=== PATIENT | female | born 1945 | race Caucasian/White ===

== ENCOUNTER 2017-04-26 12:56 | Emergency (ER) | payer MEDICARE, SELFPAY ==
[2017-04-26 13:11] VITALS: BMI 54.8
--- NOTE | 2017-04-26 13:15 | PC.NURSE ---
SIL AMATO CONTACTED AT THIS TIME
--- NOTE | 2017-04-26 13:15 | [facility].EDCPR ---
ED Disposition Clinical Impression: Cardiac arrest, D.O.A. ( on arrival), Sudden cardiac Disposition: Condition on Discharge: Instructions: Cardiac Arrest Time of Disposition: 13:15 - Critical Care Critical Care Time: Yes Attestation: On , the high probability of a clinically significant, sudden or life threatening deterioration of the following system(s) required my full and direct attention, intervention and personal management. The time I documented below is in addition to time spent performing reported procedures but includes the following listed in this critical care notation. Total Critical Care Time: 15 Vital system(s) involved:: Circulatory Failure, Respiratory Failure My critical care processes included: Assessment & monitoring of V/S, Initial and Re-exams, Data Review/Interpretation, Coordinating Care, Medication Orders and management, Documentation [facility] Code Documentation - Arrest Information Outside of Hospital The Code Document Section documentation for [id number] Eros,Anna was populated with data that defaulted in from the timber supervisor in the Code Assessment on f_Reg Service Date] to provide within this report, the status and treatment of the patient in the ED during a Code. This documentation will be supplemented with my direct findings within the body of the report. Date Treatment Initiated: 04/26/17 Time Treatment Initiated: 12:56 Treatment Initiated By: EMS Arrest Witnessed: Yes - ALS Code Inititation ALS Initiated By: EMS ALS Type: ACLS ALS Initiated Start Time: 12:10 - Patient Condition At Code Start Condition of Patient at Start of Code: Pulseless Monitoring Devices: ECG Monitor - Circulation Initial Cardiac Rhythm: V-Tach - Oxygenation Oxygen Breathing Status: Assisted End Tidal CO2: 15 Oxygen Delivery Method: Endotracheal Tube - Labs Fingerstick Blood Glucose: 120 - Mental Status Eye Opening: None Motor Response: None Verbal Response: None Coma scale total: 3 - Patient Expiration Date: 04/26/17 Expiration Time: 13:15 Pronounced by: Dr Winter Time Pronounced: 13:15 Post Mortem Care Provided: Yes Next of Kin Notified: yes Next of Kin Notification Time: 13:20 Organ Donor: Yes Xavier Notified: Yes Attending Physician Called: No Flight Manager Case: Yes Flight Manager Notified: Yes Flight Manager Notification Date: 04/26/17 Flight Manager Notification Time: 13:30 Medical Decision Making - Medical Records Medical records reviewed: Yes: I reviewed the patient's medical records. - Lab Data Lab Results 04/26/17 13:00: POC Glucose 115 Orders (Tests/Meds): ED MEDICATIONS Discontinued Medications Generic Name Dose Route Start Last Admin Trade Name Denise PRN Reason Stop Dose Admin Epinephrine HCl 1 mg 04/26/17 13:12 04/26/17 13:10 Epinephrine 0.1mg/Ml 10ml Syringe IV 04/26/17 13:13 1 mg ONCE ONE Administration Epinephrine HCl 1 mg 04/26/17 13:14 04/26/17 13:06 Epinephrine 0.1mg/Ml 10ml Syringe IV 04/26/17 13:15 1 mg ONCE ONE Administration Epinephrine HCl 1 mg 04/26/17 13:14 04/26/17 13:03 Epinephrine 0.1mg/Ml 10ml Syringe IV 04/26/17 13:15 1 mg ONCE ONE Administration Epinephrine HCl 1 mg 04/26/17 13:14 04/26/17 13:00 Epinephrine 0.1mg/Ml 10ml Syringe IV 04/26/17 13:15 1 mg ONCE ONE Administration Amiodarone HCl 150 mg/ 103 mls @ 600 mls/hr 04/26/17 13:12 04/26/17 13:06 Dextrose IV 04/26/17 13:22 600 mls/hr ONCE ONE Administration - Alfredo Inquiry Pt receiving controlled substance: No - Reevaluation(s) Time: 13:15 Reevaluation #1: no signs of life, all efforts terminated after +1 hour of resuscitation. D/w family, who advised that they are not surprised of the patient's , as they were expecting it for a long time, as the pt's health continued to decline. She has been wheelchair bound and bed ridden for 2 years. CPR HPI - General Chief Complaint: Cardiac Arrest/CPR
--- NOTE | 2017-04-26 13:21 | PC.NURSE ---
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
--- NOTE | 2017-04-26 13:25 | PC.NURSE ---
CONTACTED [facility] AND SPOKE WITH BRIJESH
--- NOTE | 2017-04-26 14:00 | PC.NURSE ---
SPOKE WITH [facility] AND DECIDED ON [facility] DONATION.
--- NOTE | 2017-04-26 14:38 | PC.NURSE ---
PATIENT PREPPED AT THIS TIME. ICE PACKS ADDED TO THE SIDES OF THE HEAD AND EYES COVERED WITH SALINE SOAKED GAUZE
--- NOTE | 2017-04-26 22:34 | PC.NURSE ---
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
[2017-04-27 09:01] LABS: POC Glucose,Bedside 115 mg/dL
== END 2017-04-26 23:37 | disposition expired ==
PROVIDERS: Emergency Provider Emergency Medicine
DX: I46.9 Cardiac arrest, cause unspecified (principal); I25.10 Atherosclerotic heart disease of native coronary artery without angina pectoris
CPT/HCPCS: 31500; 82962; 96374; 96375; 99291; J0282